=== PATIENT | female | born 1975 | race Two or more races ===

== ENCOUNTER 2016-11-01 10:49 | Emergency (ER) | payer MEDICAID, OTHER ==
[~2016-11-01] VITALS: Ht 190.5 cm; Wt 113.4 kg
[2016-11-01] MEDS ORDERED: METF10002 PO (11:05)
[2016-11-01] MEDS ORDERED: CLOT15CR8 TP (11:05)
[2016-11-01] MEDS ORDERED: LEVE500T20 PO (11:05)
[2016-11-01] MEDS ORDERED: DIVA500T7 PO (11:07)
--- NOTE | 2016-11-01 11:13 | NUR ---
BIB FAMILY TO ED. PT IS AMBULATORY WITH STEADY GAIT. SPEAKING IN FULL SENTENCES. NAD NOTED. VSS. C/O ABDOMINAL PAIN WITH INTERMITTENT DIARRHEA X 6 MONTHS. HX OF TBI IN 2011. SEEN BY PCP AND GI CONSULT BUT NO TREATMENT WAS INITIATED. WCTM PT AT THIS TIME. MD LEIVA AT BEDSIDE PERFORMING MSE.
[2016-11-01] MEDS ORDERED: IV NORMAL SALINE 1000 ML BAG IV ONE (11:15)
[2016-11-01 11:31] LABS: BASOPHILS % (AUTO) 0.5 % (0.0-2.0); EOSINOPHILS # (AUTO) 0.2 K/uL (0.0-0.7); EOSINOPHILS % (AUTO) 2.3 % (0.0-7.0); HEMATOCRIT 41.5 % (37-47); HEMOGLOBIN 13.7 G/DL (12.0-16.0); LYMPHOCYTES # (AUTO) 2.7 K/UL (0.8-4.8); LYMPHOCYTES % (AUTO) 34.2 % (20.5-51.5); MEAN CORPUSCULAR HEMOGLOBIN 30.4 UUG (27.0-31.0); MEAN CORPUSCULAR HGB CONC 33 g/dL (32.0-37.0); MEAN CORPUSCULAR VOLUME 92.3 FL (81.0-99.0); MONOCYTES # (AUTO) 0.4 K/UL (0.1-1.30); MONOCYTES % (AUTO) 4.5 % (0.0-11.0); NEUTROPHILS # (AUTO) 4.6 K/UL (1.8-8.9); NEUTROPHILS % (AUTO) 58.5 % (38.5-71.5); PLATELET COUNT (AUTO) 232 K/UL (150-450); RED BLOOD CELL COUNT(AUTO) 4.49 MIL/UL (4.2-5.4); WHITE BLOOD COUNT (AUTO) 7.9 K/UL (4.0-11.2)
[2016-11-01 11:40] LABS: CREATININE 0.9 mg/dL (0.6-1.3)
[2016-11-01] MEDS ORDERED: ONDANSETRON IV *ER 4 MG/2 ML VIAL IV ONE (11:45)
[2016-11-01 11:46] LABS: BILIRUBIN,DIRECT 0.1 mg/dL (0.0-0.2); BILIRUBIN,TOTAL 0.3 mg/dL (0.2-1.0); TOTAL PROTEIN, SERUM 8.5 g/dL (6.4-8.2)
[2016-11-01] MEDS ORDERED: ONDANSETRON 4 MG/2 ML VIAL ONE (11:47)
--- NOTE | 2016-11-01 11:54 | NUR ---
UA COLLECTED AND SENT
[2016-11-01 12:25] LABS: *BILIRUBIN,URIN NEGATIVE (NEGATIVE); *BLOOD, URINE NEGATIVE (NEGATIVE); *CLARITY,URINE SLIGHTLY CLOUDY (CLEAR); *COLOR,URINE YELLOW (YELLOW); *KETONES,URINE 1+ (NEGATIVE); *PROTEIN,URINE NEGATIVE (NEGATIVE); LEUKOCYTE ESTERASE ,URINE TRACE (NEGATIVE); NITRITE, URINE NEGATIVE (NEGATIVE); UGLUCOSE NEGATIVE (NEGATIVE)
[2016-11-01 12:36] LABS: BACTERIA,URINE FEW /HPF (NONE SEEN); RBC,URINE NONE SEEN /HPF (0-3); SQUAMOUS EPITHELIAL CELL,UR FEW /HPF (NONE SEEN)
--- NOTE | 2016-11-01 13:00 | NUR ---
Patient discharged to home in stable conditon. Written and verbal after care instructions given. Prescription provided per MD Cevallos's order. Patient and GUARDIAN verbalizes understanding of instructions. No further questions or concerns noted prior on leaving the ED.
== END 2016-11-01 13:02 | disposition home or self-care (01) ==
LOC: ER 11:02
DX: A09 Infectious gastroenteritis and colitis, unspecified (principal); E11.9 Type 2 diabetes mellitus without complications; G40.909 Epilepsy, unspecified, not intractable, without status epilepticus
CPT/HCPCS: 36415; 83690; 85025; 87086; A4663; J2405